=== PATIENT | female | born 1955 | race Caucasian/White ===

== ENCOUNTER 2019-03-04 08:08 | Day surgery (SDC) | payer OTHER ==
[2019-03-01 15:48] VITALS: BMI 34.3
[2019-03-04] MEDS ORDERED: LIDOCAINE HCL/PF 2% SDV 5ML VIAL ONE (08:21)
[2019-03-04] MEDS ORDERED: PROPOFOL 20 ML ONE ×2 (08:22)
[2019-03-04 09:16] VITALS: TEMP 97.9
[2019-03-04 09:53] VITALS: BP 134/77; PULSE 63
--- NOTE | 2019-03-05 18:29 | PATH ---
Surgical Pathology Report Patient Name: RONAL GUERRA [facility]. Rec. #: [id number] /Age/Gender: 1955 (Age: 63) / F Account: [id number] Location: [facility] Taken: 03/04/2019 Received: 03/04/2019 Reported: 03/05/2019 Physicians: Jovanny Miranda M.D. Specimen(s) Received POLYP CECUM Clinical History Screening colonoscopy Postoperative diagnosis: Colon polyp Final Diagnosis CECUM, POLYP, BIOPSY: POLYPOID COLONIC MUCOSA WITH PROMINENT LYMPHOID AGGREGATE. Electronically Signed Julia Bustos M.D. Gross Description Received in formalin, labeled "polyp cecum" is a cervantes, irregular portion of soft tissue measuring 0.3 cm. in greatest dimension. The specimen is submitted in toto in one cassette. MLSZ/03/04/2019 sanml/03/04/2019
== END 2019-03-04 09:40 | disposition home or self-care (01) ==
LOC: FASU-ENDO 08:08
PROVIDERS: ATTEND Internal Medicine Gastroenterology
PROC: 0DBH8ZX Excision of Cecum, Via Natural or Artificial Opening Endoscopic, Diagnostic (ICD-10-PCS; principal; 2019-03-04 08:43)
DX: Z12.11 Encounter for screening for malignant neoplasm of colon (principal); D12.0 Benign neoplasm of cecum
CPT/HCPCS: 88305-TC